=== PATIENT | female | born 1995 | race Caucasian/White ===

== ENCOUNTER 2018-05-22 20:09 | Emergency (ER) | payer BC ==
[2018-05-22] MEDS: SOD CHLORIDE 0.9% 1,000 ML IV (20:54)
[2018-05-22 21:09] LABS: ADD MAN DIFF? NO
[2018-05-22 21:11] LABS: WHITE BLOOD COUNT 7.5 10^3/ul (4.8-10.8)
[2018-05-22 21:11] LABS: BASOPHILS % 0.4 % (0.0-2.0); EOSINOPHILS # 0.1 10^3/ul (0.0-0.5); EOSINOPHILS % 0.9 % (0.0-7.0); HEMATOCRIT 37.8 % (37.0-47.0); HEMOGLOBIN 13.4 g/dl (12.0-16.0); LYMPHOCYTES # 2.6 10^3/ul (0.8-2.9); LYMPHOCYTES % 34.8 % (15.0-51.0); MEAN CORPUSCULAR HEMOGLOBIN 30.2 pg (29.0-33.0); MEAN CORPUSCULAR HGB CONC 35.4 g/dl (32.0-37.0); MEAN CORPUSCULAR VOLUME 85.3 fl (82.0-101.0); MEAN PLATELET VOLUME 11.5 fl (7.4-10.4); MONOCYTE # 0.6 10^3/ul (0.3-0.9); MONOCYTES % 8.4 % (0.0-11.0); NEUTROPHIL # 4.1 10^3/ul (1.6-7.5); PLATELET COUNT 198 10^3/UL (140-415); RED BLOOD COUNT 4.43 10^6/ul (4.20-5.40); RED CELL DISTRIBUTION WIDTH 12.1 % (11.5-14.5)
[2018-05-22 21:16] LABS: ADD UMIC YES; UR AMORPHOUS CRYSTAL FEW /HPF (NONE SEEN); UR ASCORBIC ACID 20 mg/dL (NEGATIVE); UR BACTERIA MODERATE /HPF (NONE SEEN); UR BILIRUBIN (Dip) NEGATIVE (NEGATIVE); UR BLOOD (Dip) NEGATIVE (NEGATIVE); UR CLARITY CLOUDY (CLEAR); UR COLOR YELLOW (YELLOW); UR GLUCOSE (Dip) NEGATIVE (NEGATIVE); UR KETONES (Dip) NEGATIVE (NEGATIVE); UR LEUKOCYTE ESTERASE (Dip) 2+ Leu/ul (NEGATIVE); UR NITRITE (Dip) NEGATIVE (NEGATIVE); UR RBC 2 /HPF (0-5); UR SPECIFIC GRAVITY (Dip) 1.009 (1.003-1.030); UR SQUAMOUS EPITHELIAL CELL MODERATE /HPF (FEW); UR TOTAL PROTEIN (Dip) NEGATIVE (NEGATIVE); UR UROBILINOGEN (Dip) NEGATIVE (NEGATIVE); UR WBC 7 /HPF (0-5)
[2018-05-22 21:28] LABS: ALANINE AMINOTRANSFERASE 14 IU/L (13-69); ALBUMIN/GLOBULIN RATIO 1.37; ALKALINE PHOSPHATASE 38 IU/L (42-121); ASPARTATE AMINO TRANSFERASE 14 IU/L (15-46); BILIRUBIN,INDIRECT 0.4 mg/dl (0-1.1); BILIRUBIN,TOTAL 0.4 mg/dl (0.2-1.3); BLOOD UREA NITROGEN 3 mg/dl (7-20); CALCIUM 9.2 mg/dl (8.4-10.2); CARBON DIOXIDE 23 mmol/L (21-31); CREATININE 0.34 mg/dl (0.44-1.00); Estimated GFR > 60 mL/min (>60); GLUCOSE 81 mg/dl (70-220); POTASSIUM 3.9 mmol/L (3.5-5.1); SODIUM 137 mmol/L (135-144); TOTAL PROTEIN 6.9 g/dl (6.1-8.1)
[2018-05-22 21:30] LABS: PARTIAL THROMBOPLASTIN TIME 25.2 Sec (23.0-35.0); PROTIME 13.3 Sec (11.9-14.9)
[2018-05-22 21:40] LABS: ANION GAP 12 (5-13); CHLORIDE 102 mmol/L (97-110)
[2018-05-22] MEDS: METOCLOPRAMIDE 10 MG INJ IV (22:04)
== END 2018-05-22 22:46 | disposition home or self-care (01) ==
LOC: FTE 20:09
DX: O26.891 Other specified pregnancy related conditions, first trimester (principal); O23.41 Unspecified infection of urinary tract in pregnancy, first trimester; R10.2 Pelvic and perineal pain; Z3A.10 10 weeks gestation of pregnancy
CPT/HCPCS: 36415; 76801; 80053; 81001; 84702; 85025; 85610; 85730; 86900; 86901; 87086; 99285-25

== ENCOUNTER 2018-12-21 17:05 | Inpatient (IN) | payer BC ==
[2018-12-21] MEDS ORDERED: BUTORPHANOL 2 MG INJ IV (18:30)
[2018-12-21] MEDS ORDERED: CARBOPROST 250 MCG INJ IM (18:30)
[2018-12-21] MEDS ORDERED: OXYTOCIN 30 UNITS/LR 500 ML IV ×2 (18:30)
[2018-12-21] MEDS ORDERED: LIDOCAINE 1% (MPF) 30 ML INJ INJ (18:30)
[2018-12-21] MEDS ORDERED: MISOPROSTOL 200 MCG TAB PR (18:30)
[2018-12-21] MEDS ORDERED: IBUPROFEN 600 MG TAB PO (18:30)
[2018-12-21] MEDS ORDERED: METHYLERGONOVINE 0.2 MG INJ IM (18:30)
[2018-12-21 20:19] LABS: ADD MAN DIFF? NO
[2018-12-21] MEDS: LACTATED RINGER'S 1,000 ML IV (20:46)
[2018-12-21 20:50] LABS: WHITE BLOOD COUNT 9.1 10^3/ul (4.8-10.8)
[2018-12-21 20:50] LABS: HEMATOCRIT 36.4 % (37.0-47.0); HEMOGLOBIN 12.2 g/dl (12.0-16.0); MEAN CORPUSCULAR VOLUME 83.7 fl (82.0-101.0); RED BLOOD COUNT 4.35 10^6/ul (4.20-5.40)
[2018-12-21 20:51] LABS: BASOPHILS % 0.4 % (0.0-2.0); EOSINOPHILS % 0.3 % (0.0-7.0); LYMPHOCYTES % 21.7 % (15.0-51.0); MEAN CORPUSCULAR HGB CONC 33.5 g/dl (32.0-37.0); MEAN PLATELET VOLUME 11.6 fl (7.4-10.4); MONOCYTE # 0.4 10^3/ul (0.3-0.9); MONOCYTES % 4.6 % (0.0-11.0); NEUTROPHIL # 6.5 10^3/ul (1.6-7.5); NEUTROPHILS % 71.5 % (39.0-77.0); PLATELET COUNT 192 10^3/UL (140-415); RED CELL DISTRIBUTION WIDTH 14.2 % (11.5-14.5)
[2018-12-21] MEDS ORDERED: AMPICILLIN 2 GM/NS (PMX) 100 ML (20:51)
[2018-12-21] MEDS: AMPICILLIN 2 GM/NS (PMX) 100 ML IV (20:55)
[2018-12-21 21:21] LABS: INR 0.89; PROTIME 12.2 Sec (11.9-14.9)
[2018-12-21 21:22] LABS: PARTIAL THROMBOPLASTIN TIME 23.5 Sec (23.0-35.0)
[2018-12-21 21:36] LABS: HEPATITIS B SURFACE ANTIGEN NEGATIVE (NEGATIVE)
[2018-12-22] MEDS: AMPICILLIN 1 GM/NS (PMX) 50 ML IV ×4 (01:05→13:02)
[2018-12-22] MEDS: LACTATED RINGER'S 1,000 ML IV ×3 (04:03→13:06)
[2018-12-22] MEDS ORDERED: FENTAnyl 2MCG/ML-ROPIV 0.2% 100 ML (05:39)
[2018-12-22] MEDS ORDERED: NALOXONE (0.4 MG/ML) INJ IV (06:00)
[2018-12-22] MEDS ORDERED: FENTAnyl 2MCG/ML-ROPIV 0.2% 100 ML BAG EPI (06:00)
[2018-12-22] MEDS ORDERED: ONDANSETRON 4 MG INJ (07:32)
[2018-12-22] MEDS: ONDANSETRON 4 MG INJ IV (07:57)
[2018-12-22] MEDS: OXYTOCIN 30 UNITS/LR 500 ML IV ×3 (07:58→20:03)
[2018-12-22] MEDS: BUTORPHANOL 2 MG INJ IV (15:35)
[2018-12-22] MEDS ORDERED: ONDANSETRON 4 MG INJ IV (16:00)
[2018-12-22] MEDS ORDERED: MISOPROSTOL 200 MCG TAB PR (16:00)
[2018-12-22] MEDS ORDERED: OXYTOCIN 30 UNITS/LR 500 ML IV (16:00)
[2018-12-22] MEDS ORDERED: CARBOPROST 250 MCG INJ IM (16:00)
[2018-12-22] MEDS ORDERED: METHYLERGONOVINE 0.2 MG INJ IM (16:00)
[2018-12-22] MEDS ORDERED: NACL 0.9% 3 ML SYG IV (16:00)
[2018-12-22] MEDS: MINERAL OIL LIGHT 10 ML VIAL TOP (16:23)
[2018-12-22] MEDS: IBUPROFEN 600 MG TAB PO ×2 (17:10→23:46)
[2018-12-22] MEDS: SENNA/DOCUSATE NA (8.6MG/50MG) TAB PO (21:11)
[2018-12-22] MEDS: WITCH HAZEL/GLYCERIN PAD PR (21:11)
[2018-12-22] MEDS: OXYCODONE/ASPIRIN (4.88/325) TAB PO (21:12)
[2018-12-22 22:32] LABS: RAPID PLASMA REAGIN NONREACTIVE (NR)
[2018-12-23] MEDS: LACTATED RINGER'S 1,000 ML IV (02:17)
[2018-12-23] MEDS: IBUPROFEN 600 MG TAB PO ×3 (05:33→18:05)
[2018-12-23 07:08] LABS: ADD MAN DIFF? NO
[2018-12-23 07:11] LABS: BASOPHILS % 0.2 % (0.0-2.0); EOSINOPHILS # 0.1 10^3/ul (0.0-0.5); EOSINOPHILS % 0.7 % (0.0-7.0); HEMATOCRIT 35.8 % (37.0-47.0); HEMOGLOBIN 11.3 g/dl (12.0-16.0); LYMPHOCYTES # 3.5 10^3/ul (0.8-2.9); MEAN CORPUSCULAR HEMOGLOBIN 27.5 pg (29.0-33.0); MEAN CORPUSCULAR HGB CONC 31.6 g/dl (32.0-37.0); MEAN CORPUSCULAR VOLUME 87.1 fl (82.0-101.0); MEAN PLATELET VOLUME 11.8 fl (7.4-10.4); MONOCYTE # 0.8 10^3/ul (0.3-0.9); MONOCYTES % 6.4 % (0.0-11.0); NEUTROPHIL # 8.2 10^3/ul (1.6-7.5); NEUTROPHILS % 63.8 % (39.0-77.0); PLATELET COUNT 168 10^3/UL (140-415); RED BLOOD COUNT 4.11 10^6/ul (4.20-5.40); RED CELL DISTRIBUTION WIDTH 14.5 % (11.5-14.5)
[2018-12-23 07:11] LABS: WHITE BLOOD COUNT 12.9 10^3/ul (4.8-10.8)
[2018-12-23] MEDS: SENNA/DOCUSATE NA (8.6MG/50MG) TAB PO ×2 (10:45→21:35)
[2018-12-23] MEDS: OXYCODONE/ASPIRIN (4.88/325) TAB PO ×2 (12:33→21:41)
[2018-12-23] MEDS: BENZOCAINE 20% 56 ML SPRAY TOP (16:13)
[2018-12-23] MEDS: DIBUCAINE 1% 30 GM OINT TOP (16:14)
[2018-12-23] MEDS: WITCH HAZEL/GLYCERIN PAD PR (16:16)
[2018-12-24] MEDS: IBUPROFEN 600 MG TAB PO ×3 (00:08→11:51)
[2018-12-24] MEDS: SENNA/DOCUSATE NA (8.6MG/50MG) TAB PO (08:25)
[2018-12-24] MEDS: LANOLIN HPA 1 PKT TOP (08:25)
== END 2018-12-24 13:05 | disposition home or self-care (01) | DRG 807 ==
LOC: OBT 17:05 → L-D 12-22 04:46 → PP1 12-22 17:41 → L-D 17:40 → OBT 18:01 → L-D 18:01
PROVIDERS: Obstetrics & Gynecology
PROC: 10E0XZZ Delivery of Products of Conception, External Approach (ICD-10-PCS; principal; 2018-12-22)
PROC: 0KQM0ZZ Repair Perineum Muscle, Open Approach (ICD-10-PCS; 2018-12-22)
PROC: 0W8NXZZ Division of Female Perineum, External Approach (ICD-10-PCS; 2018-12-22)
DX: O99.824 Streptococcus B carrier state complicating childbirth (principal); O70.1 Second degree perineal laceration during delivery; Z3A.40 40 weeks gestation of pregnancy; Z37.0 Single live birth
CPT/HCPCS: 62322; 85025; 85610; 85730; 86592; 86850; 86900; 86901; 87340; 99464